=== PATIENT | male | born 1970 | race Caucasian/White ===

== ENCOUNTER 2020-09-07 14:12 | Outpatient (CLI) | payer OTHER | END 2020-09-07 23:59 | disposition home or self-care (01) | LOC: LAB 14:12 | PROVIDERS: ATTEND Specialist | DX: Z01.812 Encounter for preprocedural laboratory examination (principal); Z20.822 Contact with and (suspected) exposure to COVID-19 | CPT/HCPCS: C9803; U0003 ==

== ENCOUNTER 2020-09-12 06:02 | Day surgery (SDC) | payer OTHER ==
[2020-09-12] MEDS ORDERED: FENTANYL PF 100MCG/2ML AMPUL ONE (08:17)
[2020-09-12] MEDS ORDERED: EPINEPHRINE (1:1000) 1 MG/ML AMPUL ONE (09:12)
[2020-09-12] MEDS ORDERED: methylPREDNISolone ACETATE 80 MG/ML VIAL ONE (09:13)
[2020-09-12] MEDS ORDERED: LIDOCAINE HCL/PF 1% 30 ML SDV ONE (09:13)
[2020-09-12] MEDS ORDERED: ONDANSETRON HCL/PF 4 MG/2 ML VIAL ONE (10:01)
[2020-09-12] MEDS ORDERED: MENTHOL/CETYLPYRD (CEPACOL) 1 LOZ LOZENGE ONE (10:08)
[2020-09-12] MEDS ORDERED: METOCLOPRAMIDE HCL 10 MG/2 ML VIAL ONE (10:37)
== END 2020-09-12 11:40 | disposition home or self-care (01) ==
LOC: DS 06:02
PROVIDERS: ATTEND Specialist
DX: M75.42 Impingement syndrome of left shoulder (principal); M65.812 Other synovitis and tenosynovitis, left shoulder; K21.9 Gastro-esophageal reflux disease without esophagitis; Z79.899 Other long term (current) drug therapy
CPT/HCPCS: 29823; 29826; A4217; A6253; A6402; J0171; J0690; J1040; J1100; J2370; J2405; J2704; J2765; J3010; J3490 ×4